=== PATIENT | female | born 1985 | race Asian ===

== ENCOUNTER 2022-11-06 09:10 | Outpatient (CLI) | payer OTHER | END 2022-11-06 09:11 | disposition home or self-care (01) | LOC: BICRAD 09:10 | PROVIDERS: ATTEND Nurse Practitioner Family | DX: R05.1 Acute cough (principal); R06.2 Wheezing; R07.9 Chest pain, unspecified; Z20.822 Contact with and (suspected) exposure to COVID-19 | CPT/HCPCS: 71046 ==